=== PATIENT | female | born 1980 | race Caucasian/White ===

== ENCOUNTER → 2020-01-01 11:27 | Outpatient (CLI) | payer OTHER, SELFPAY | PROVIDERS: PCP Internal Medicine Adolescent Medicine; Visit Provider Internal Medicine Adolescent Medicine | DX: Z20.828 Contact with and (suspected) exposure to other viral communicable diseases (principal); U07.1 COVID-19 | CPT/HCPCS: U0003 ==

== ENCOUNTER → 2021-01-17 13:28 | Outpatient (CLI) | payer OTHER, SELFPAY ==
[2021-01-19 08:17] LABS: HIV Screen 4th Generation wRfx Non Reactive (Non Reactive)
[2021-01-19 12:11] LABS: Hep A Ab, IgM Negative (Negative); Hepatitis B Core Antibody IgM Negative (Negative); Hepatitis B Surface Antigen Negative (Negative); Hepatitis C Antibody <0.1 s/co ratio (0.0-0.9)
== END ==
PROVIDERS: Visit Provider Internal Medicine Adolescent Medicine
DX: Z11.4 Encounter for screening for human immunodeficiency virus [HIV] (principal); Z20.5 Contact with and (suspected) exposure to viral hepatitis
CPT/HCPCS: 36415; 80074; 86703; G0432

== ENCOUNTER → 2022-03-28 06:20 | Outpatient (CLI) | payer OTHER, SELFPAY | PROVIDERS: PCP Nurse Practitioner Family; Visit Provider Nurse Practitioner Family | DX: R30.0 Dysuria (principal); B96.29 Other Escherichia coli [E. coli] as the cause of diseases classified elsewhere | CPT/HCPCS: 87086; 87088; 87186 ==

== ENCOUNTER → 2022-05-31 16:52 | Outpatient (CLI) | payer OTHER, SELFPAY ==
--- NOTE | 2022-05-31 16:56 | MM_ITS ---
PROCEDURE INFORMATION: Exam: MG Bilateral Screening 3D Mammography Exam date and time: 05/31/2022 4:45 PM Age: 42 years old Clinical indication: Screening examination TECHNIQUE: Imaging protocol: Bilateral Screening tomosynthesis and 2D mammography including computer-aided detection (CAD) when performed. COMPARISON: 1. MG MAMMO DIAGNOSTIC DIGITAL TOMOSYNTHESIS BILATERAL W CAD 06/21/2020 1:20 PM 2. US BREAST RIGHT LIMITED 06/21/2020 3:35 PM FINDINGS: MAMMOGRAPHY: Breast composition: The breasts are heterogeneously dense, which may obscure small masses. Mass: None. Architectural distortion: None. Calcifications: No suspicious calcifications. Asymmetric density: None. Skin thickening: None. Axillary adenopathy: None. IMPRESSION: No mammographic evidence of malignancy. Annual screening is recommended unless otherwise clinically indicated. ASSESSMENT: BI-RADS Category 1: Negative
== END ==
PROVIDERS: PCP Nurse Practitioner Family; Visit Provider Nurse Practitioner Family
DX: Z12.31 Encounter for screening mammogram for malignant neoplasm of breast (principal)
CPT/HCPCS: 77063; 77067

== ENCOUNTER → 2022-06-17 10:00 | Outpatient (CLI) | payer OTHER, SELFPAY | PROVIDERS: PCP Family Medicine; Visit Provider Family Medicine | DX: R30.0 Dysuria (principal); B96.29 Other Escherichia coli [E. coli] as the cause of diseases classified elsewhere | CPT/HCPCS: 87086; 87088; 87186 ==

== ENCOUNTER → 2022-08-26 06:49 | Outpatient (CLI) | payer OTHER, SELFPAY ==
--- NOTE | 2022-08-26 07:15 | US_ITS ---
PROCEDURE: US TRANSVAGINAL CLINICAL INDICATION: IUD CHECK UP,FAMILY H/O OVARIAN CYST COMPARISON: No exams were available for comparison FINDINGS: UTERUS: 7cm x 5cmx 4cm with a combined endometrial thickness of 7.5mm the myometrium appears somewhat heterogenous in texture. The cervix is normal with a couple of small nabothian cysts. There is an IUD within the uterine cavity in the correct position. LEFT OVARY: 4spw6ven9.9cm with a volume of 6.9ml. RIGHT OVARY: 3cmx 3tfi9tw with a volume of 6.5ml. There are 3 small follicles on each ovary the largest of which is 8 millimeters. IMPRESSION: 1. Normal transvaginal ultrasound of the pelvis. 2. The uterus is anteverted and normal in shape and size. There is an IUD within the endometrial cavity in the correct position. The cervix has a couple of small nabothian cysts. 3. The myometrium appears somewhat heterogenous which is of questionable clinical significance. 4. The ovaries appear normal and have a few small follicles on each ovary. There is good Doppler flow to each ovary. 5. There is no fluid in the cul-de-sac. Dictated by: Samuel Mason MD 08/26/2022 09:27 Samuel Mason MD in [place] 08/26/2022 09:27
== END ==
PROVIDERS: PCP Internal Medicine Adolescent Medicine; Referring Provider Nurse Practitioner Obstetrics & Gynecology; Visit Provider Nurse Practitioner Obstetrics & Gynecology
DX: Z30.431 Encounter for routine checking of intrauterine contraceptive device (principal); Z80.41 Family history of malignant neoplasm of ovary
CPT/HCPCS: 76830

== ENCOUNTER → 2023-02-06 16:49 | Outpatient (CLI) | payer OTHER, SELFPAY ==
[2023-02-06 17:44] LABS: Basophils # 0.1 K/mm3 (0-0.2); Basophils % 0.9 % (0.1-2.0); Eosinophils # 0.1 K/mm3 (0.0-0.4); Eosinophils % 1.6 % (0.1-12.0); Hematocrit 44.1 % (37.0-47.0); Hemoglobin 14.8 g/dL (12.2-16.2); Lymphocytes # 2.5 K/mm3 (0.7-4.5); Lymphocytes % 29.5 % (10-50); Mean Corpuscular HGB Conc 33.5 g/dL (31.8-35.4); Mean Corpuscular Hemoglobin 29.6 pg (27.0-31.2); Mean Corpuscular Volume 88.5 fl (81-99); Mean Platelet Volume 10.2 fl (7.4-10.4); Monocytes # 0.6 K/mm3 (0.1-1.0); Neutrophils # 5.2 K/mm3 (1.8-7.8); Platelet Count 266 K/mm3 (142-424); Red Blood Count 4.98 M/mm3 (4.20-5.40); Red Cell Distribution Width 13.5 % (11.5-17.5); White Blood Count 8.5 K/mm3 (4.8-10.8)
[2023-02-06 19:09] LABS: Chloride 104 mmol/L (98-107); Potassium 4.4 mmoL/L (3.5-5.1); Sodium 140 mmol/L (136-145)
[2023-02-06 19:12] LABS: Anion Gap 12.4 mEq/L (5-15); Blood Urea Nitrogen 13 mg/dl (7-17); Carbon Dioxide 28 mmol/L (22.0-30.0); Estimated Glomerular Filt Rate 111 ml/min (>60); GFR (African American) 134 ML/MIN (>60); Iron 122 ug/dL (37-170)
[2023-02-06 19:13] LABS: Calcium 9.2 mg/dl (8.4-10.2); Glucose 94 mg/dl (74-100)
[2023-02-06 19:18] LABS: 25-OH Vitamin D, Total 34.2 ng/mL (30-100)
[2023-02-06 19:19] LABS: Free T4 (Free Thyroxine) 1.05 ng/dl (0.78-2.19)
[2023-02-06 19:22] LABS: Total Iron Binding Capacity 404 ug/dL (265-497)
[2023-02-06 19:44] LABS: Thyroid Stimulating Hormone 1.13 uIU/mL (0.465-4.68)
[2023-02-06 19:48] LABS: Ferritin 28.2 ng/ml (6.24-137)
[2023-02-06 20:06] LABS: Alanine Aminotransferase 38 U/L (12-78); Aspartate Amino Transferase 34 U/L (14-36)
[2023-02-06 20:07] LABS: Albumin Level 4.6 g/dl (3.5-5.0); Albumin/Globulin Ratio 1.7 (1.1-1.8); Bilirubin,Total 1.4 mg/dl (0.2-1.3); Chol/HDL Ratio 4.4 (1-3.5); Cholesterol 195 mg/dl (140-200); Globulin 2.7 g/dL (1.3-3.2); HDL Cholesterol 44 mg/dl (40-60); Total Protein,Serum 7.3 g/dl (6.3-8.2); Triglycerides 79 mg/dl (30-150); VLDL Cholesterol 16 mg/dL (0-40)
[2023-02-06 20:18] LABS: Direct LDL Cholesterol 127.77 mg/dL (100-129)
[2023-02-06 21:35] LABS: Vitamin B12 738 pg/mL (239-931)
[2023-02-06 21:44] LABS: Alkaline Phosphatase 58 U/L (38-126)
== END ==
PROVIDERS: PCP Nurse Practitioner Family; Visit Provider Nurse Practitioner Family
DX: Z00.00 Encounter for general adult medical examination without abnormal findings (principal); E55.9 Vitamin D deficiency, unspecified; R53.81 Other malaise; Z86.39 Personal history of other endocrine, nutritional and metabolic disease; Z68.26 Body mass index [BMI] 26.0-26.9, adult
CPT/HCPCS: 80053; 80061; 82306; 82607; 82728; 83540; 83550; 84439; 84443; 85025

== ENCOUNTER 2023-09-24 11:10 | Outpatient (CLI) | payer OTHER, SELFPAY | END 2023-09-24 23:59 | disposition home or self-care (01) | LOC: LAB.DROPOF 09-25 11:10 | PROVIDERS: PCP Nurse Practitioner; Visit Provider Nurse Practitioner | DX: R30.0 Dysuria (principal) | CPT/HCPCS: 87086; 87088; 87186 ==

== ENCOUNTER 2023-12-26 18:54 | Emergency (ER) | payer OTHER, SELFPAY ==
[2023-12-26 19:06] VITALS: BP 144/70; PULSE 80; RESP 16; TEMP 36.7; O2SAT 99; BMI 26.5
[2023-12-26] MEDS: METHYLPREDNISOLONE SOD SUCC 125MG VIAL 125 MG IM (19:09)
[2023-12-26] MEDS: FAMOTIDINE 20MG TABLET 20 MG PO (19:10)
[2023-12-26] MEDS: LORATADINE 10MG TABLET 10 MG PO (19:10)
--- NOTE | 2023-12-26 19:10 | EXP.UTC ---
Discharge Plan Disposition Patient Disposition: Home, Self-Care Condition: Good Prescriptions Prescriptions: New prednisolone acetate [Pred Forte] 1 % drops,suspension 1 drp ophthalmic (eye) QID Qty: 10 0RF Rx Instructions: in right eye as directed methylprednisolone [Medrol (Jose Enrique)] 4 mg tablets,dose pack See Rx Instructions .Route .COMPLEX 6 Days Qty: 21 0RF Rx Instructions: taper pack; No Action citalopram 10 mg tablet 20 mg PO DAILY valacyclovir [Valtrex] 1 gram tablet 1,000 mg PO TID 10 Days Qty: 30 1RF Mirena 20 mcg/24 hours (8 yrs) 52 mg intrauterine device intrauterine nitrofurantoin monohyd/m-cryst [Macrobid] 100 mg capsule 100 mg PO Q12H 7 Days Qty: 14 0RF Rx Instructions: must administer with a meal/food Referrals Follow up/Referrals: Ki Kapadia MD [Primary Care Provider] - See instructions Activity Restrictions/Add. Instructions Additional Instructions/Restrictions: Use eyedrops as prescribed Follow up with your Eye Doctor if no improvement or any worsening of symptoms Start oral steriods tomorrow Follow up with your Family Doctor if needed Straight to ER if any life threatening symptoms Clinical Impressions Clinical Impression: Allergic reaction Qualifiers: Encounter type: initial encounter Qualified Code(s): T78.40XA - Allergy, unspecified, initial encounter Instructions Patient Instructions: DI for General Allergic Reactions, Prednisolone Ophthalmic Print Language Print Language: Korean Discharge ED Provider: Yojana Chacon [facility] [place] Stated complaint: poss allergic reaction Mode of Arrival: Ambulatory Source of Information: Patient Limitations: No Limitations Time Seen by Provider: 12/26/23 19:11 Description of Symptoms (Recalled from Triage Doc. by RN): Possible allergic reaction to her right eye. HEENT Symptoms (Recalled from RN notes): Yes Resp Symptoms (Recalled from RN notes): No Skin Symptoms (Recalled from RN notes): Yes MS Symptoms (Recalled from RN notes): No Functional Status (Recalled from RN notes): wnl History of Present Illness Provider Complaint: Patient states that she is allergic to cats and she had one jump up in her lap and she accidently touched her face and rubbed her right eye States that she noticed her face was starting to get red and break out and look like she has a blister on her eye and it is very itchy States that she noticed the redness and swelling was getting worse so she came in to get checked Related Data Home Medications ?Medication ?Instructions ?Recorded ?Confirmed levonorgestrel 21 mcg/24 hr (up to intrauterine 03/28/22 04/11/23 8 years) 52 mg intrauterine device (Mirena) citalopram 10 mg tablet 20 mg PO DAILY anxiety 04/11/23 04/11/23 Previous Rx's ?Medication ?Instructions ?Recorded valacyclovir 1 gram tablet 1,000 mg PO TID 10 days #30 tabs 04/11/23 (Valtrex) nitrofurantoin 100 mg PO Q12H 7 days #14 caps 09/24/23 monohydrate/macrocrystals 100 mg capsule (Macrobid) methylprednisolone 4 mg tablets in See Rx Instructions .Route 12/26/23 a dose pack (Medrol (Jose Enrique)) .COMPLEX 6 days #21 tabs prednisolone acetate 1 % eye 1 drp ophthalmic (eye) QID #10 mL 12/26/23 drops,suspension (Pred Forte) Allergies Allergy/AdvReac Type Severity Reaction Status Date / Time minocycline Allergy Verified 04/11/23 09:07 Sulfa (Sulfonamide Allergy Verified 04/11/23 09:07 Antibiotics) Worker's Comp Is this a Worker's Comp case?: No [facility] Disclaimer: The information contained in this section may have been updated after the patient was seen, as this information can be updated by other users. Medical History No active medical problems Surgical History History of 3 sections History of appendectomy History of bunionectomy Family History Mother Stroke Hypertension Father Diabetes Cancer bladder Brother Diabetes Hypertension Hyperlipidemia Kidney disease Social History Smoking Status: Never smoker second hand exposure: No alcohol intake: never substance use type: denies use current occupational status: employed Travel in the last 8 weeks: None household members: family housing: house marital status: ROS Obtained: Yes All systems reviewed & no additional complaints except as documented and Yes Systems reviewed as appropriate & no additional complaints except as documented Constitutional Constitutional: Reports system reviewed and no additional complaints, except as documented and Reports as per HPI Eyes Eyes: Reports system reviewed and no additional complaints, except as documented, Reports as per HPI and Reports itchy eyes (with fluid filled area noted on eye) ENT Ears, Nose, Mouth, and Throat: Reports system reviewed and no additional complaints, except as documented and Reports as per HPI Cardiovascular Cardiovascular: Reports system reviewed and no additional complaints, except as documented and Reports as per HPI Respiratory Respiratory: Reports system reviewed and no additional complaints, except as documented and Reports as per HPI Gastrointestinal Gastrointestingal: Reports system reviewed and no additional complaints, except as documented and as per HPI Integumentary/Breasts Skin/Breast: Reports system reviewed and no additional complaints, except as documented, Reports as per HPI and Reports pruritus Allergic/Immunologic Allergic/Immunologic: Reports itchy eyes (with fluid filled area noted on eye) Physical Exam General General appearance: alert and in no apparent distress Eye Eye exam: Present conjunctival redness, discharge (clear) and other (chemosis noted, clear fluid) ENT ENT exam: Present mucous membranes moist Respiratory Respiratory exam: Present normal lung sounds bilaterally; Absent respiratory distress or wheezes Cardiovascular Cardiovascular exam: Present regular rate, normal rhythm and normal heart sounds Neurological Exam Neurological exam: Present alert, oriented X3 and normal gait Skin Skin exam: Present rash (with redness and urticaria like reaction with mild swelling under eye) Medical Decision Making Medical Records Screening: Per USPSTF and CDC recommendations, given the prevalence of disease in our region, it is our hospital?s policy to screen for HIV and viral Hepatitis for all patients aged 18 and over and those with ongoing risk factors. Good Inquiry Pt receiving controlled substance: No Good was queried for this patient: No Vital Signs: 12/26/23 19:06 Temperature 98.0 F Temperature Source Oral Pulse Rate [Radial] 80 Respiratory Rate 16 Blood Pressure [Right Arm] 144/70 H Blood Pressure Mean [Right Arm] 94 Blood Pressure Source [Right Arm] Automatic Cuff Blood Pressure Position [Right Arm] Sitting 02 Sat by Pulse Oximetry 99 Oxygen Delivery Method Room Air Orders (Tests/Meds): ED MEDICATIONS Generic Name Dose Route Start Last Admin Trade Name Freq PRN Reason Stop Dose Admin Famotidine 20 mg 12/26/23 19:08 12/26/23 19:10 Famotidine 20mg Tablet PO 12/26/23 19:09 20 mg ONCE ONE Administration Loratadine 10 mg 12/26/23 19:09 12/26/23 19:10 Loratadine 10mg Tablet PO 12/26/23 19:10 10 mg ONCE ONE Administration Methylprednisolone Sodium Succinate 125 mg 12/26/23 19:08 12/26/23 19:09 Methylprednisolone Sod Succ 125mg Vial IM 12/26/23 19:09 125 mg ONCE ONE Administration Medical Decision Narrative: Spoke with Dr Jorgensen from [facility] patients eye doctor and he recommended Pred Forte 1 drop four times daily, cool compresses and follow up in the office if no improvement
[2023-12-26 19:35] VITALS: BP 144/70; PULSE 80; RESP 16; TEMP 36.7; O2SAT 99
== END 2023-12-26 19:36 | disposition home or self-care (01) ==
PROVIDERS: Emergency Provider Nurse Practitioner; PCP Internal Medicine Adolescent Medicine
DX: T78.40XA Allergy, unspecified, initial encounter (principal)
CPT/HCPCS: 99213; G0381; J2919

== ENCOUNTER 2024-05-03 08:42 | Outpatient (CLI) | payer OTHER, SELFPAY | END 2024-05-03 23:59 | disposition home or self-care (01) | LOC: LAB.DROPOF 05-04 08:43 | PROVIDERS: PCP Internal Medicine Adolescent Medicine; Visit Provider Nurse Practitioner | DX: N39.0 Urinary tract infection, site not specified (principal) | CPT/HCPCS: 87086; 87088; 87186 ==

== ENCOUNTER 2024-10-26 14:45 | Outpatient (CLI) | payer OTHER, SELFPAY ==
[2024-10-26 14:43] LABS: Hematocrit 43.2 % (37.0-47.0); Hemoglobin 14.0 g/dL (12.2-16.2); Immature Granulocytes % 0.2 %; Mean Corpuscular HGB Conc 32.4 g/dL (31.8-35.4); Mean Corpuscular Hemoglobin 27.6 pg (27.0-31.2); Mean Corpuscular Volume 85.2 fl (81-99); Nucleated Red Blood Cells % 0 %; Platelet Count 285 K/mm3 (142-424); Red Blood Count 5.07 M/mm3 (4.20-5.40); Red Cell Distribution Width-SD 41.1 fL; White Blood Count 6.5 K/mm3 (4.8-10.8)
--- OUTSIDE RECORDS SUMMARY | 2024-10-26 14:50 | XMS_ITS | Clinical Summary ---
Author Organization [facility] Address [address] [place] [address] Care Team Providers Care Compressor Operator Adjuster Name Role Phone Ki Kapadia MD Primary Care Provider [phone] Allergies Active Allergy Reactions Criticality Noted Date Comments Elemental Sulfur Itching Low 12/29/2017 Minocycline Shortness Of Breath High 12/29/2017 Medications No known medications Active Problems Problem Noted Date Diagnosed Date IUD (intrauterine device) in place 08/01/2022 Overview (08/01/2022): mirena placed 06/13/2020 Family history of ovarian cancer 08/01/2022 Overview (08/01/2022): Maternal GM Menorrhagia with regular cycle 05/31/2020 Overview (05/31/2020): Ongoing for 12 years. Anemia was noted on routine labs. U/S 05/31/2002-[id number], midcycle, no polyps or fibroids noted. Plan for mirena Acquired metatarsus varus of left foot 8 Family History Medical History Relation Name Comments Hypertension Brother Cancer Father Diabetes Father Hypertension Father Colon cancer Maternal Grandfather Ovarian cancer Maternal Grandmother 40's Arthritis Mother Breast cancer Neg Hx Relation Name Status Comments Brother Father Maternal Grandfather Maternal Grandmother Mother Social History Tobacco Use Types Packs/Day Years Used Date Smoking Tobacco: Never Smokeless Tobacco: Never Tobacco Cessation:Counseling Given: Not Answered Alcohol Use Standard Drinks/Week Comments No 0 (1 standard drink = 0.6 oz pur e alcohol) AUDIT-C Answer Date Recorded Q1: How often do you have a drink containing alc ohol? Never 2020 Q2: How many drinks containi ng alcohol do you have on a typical day when you are drinking? 1 or 2 2020 Q3: How often do you have six or more drinks on one occasion? Never 2020 Abuse Screen Answer Date Recorded Unsafe at Home or Work/School Not on file Feels Threatened by Someone? Not on file 11/2022 Does Anyone Keep You from Co ntacting Others or Doint Things Outside the Home? Not on file 12/30/2022 Physical Sign of Abuse Present Not on file 1 Housing Stability Answer Date Recorded Current Living Arrangements Not on file 11/2022 Potentially Unsafe Housing Conditions Not on vini e 12/30/2022 Family and Community Support Answer Pedro e Recorded Help with Day-to-Day Activities Not on file 12/30/2022 Lonely or Isolated Not on file 12/30/2022 Employment Answer Date Recorded Do you want help finding or keeping work or a demi b? Not on file 12/30/2022 Disabilities Answer Date Recorded Concentrating, Remembering, or Making Decisions Difficulty Not on file 12/30/2022 Doing Errands Independently Difficulty Not on fi le 12/30/2022 Education Answer Date Recorded Help with school or training? Not on file Preferred Language Not on file 12/30/2022 Comments No Sex and Gender Information Value Date Recorded Sex Assigned at Not on file Legal Sex Female 11:40 AM EDT Gender Identity Not on file Sexual Orientation Not on file Last Filed Vital Signs Vital Sign Reading Time Taken Comments Blood Pressure 110/78 08/01/2022 4:01 PM EDT Pulse 70 07/15/2018 2:44 PM EDT Temperature 36.5 C (97.7 F) 2020 1:24 PM EST Respiratory Rate - - Oxygen Saturation 97% 07/15/2018 2:44 PM EDT Inhaled Oxygen Concentration - - Weight 66.8 kg (147 lb 3.2 oz) 08/01/2022 4:01 P M EDT Height 162.6 cm (5' 4 ) 08/01/2022 4:01 PM EDT Body Mass Index 25.27 08/01/2022 4:01 PM EDT Plan of Treatment Health Maintenance Due Date Last Done Comments ANNUAL PHYSICAL 12/29/2017 HEPATITIS C SCREENING 12/29/2017 MAMMOGRAM 06/21/2022 06/21/2020 Annual Gynecologic Pelvic and Breast Exam 08/03/2023 08/01/2022 COVID-19 Vaccine ( season) 2023 05/05/2020, 04/04/2020 INFLUENZA VACCINE 12/22/2024 02/09/2021, , 01/20/2019, Additional history exists TDAP/TD VACCINES (2 - Td or Tdap) 09/29/2029 09/30/2019 Pneumococcal Vaccine 0-49 Aged Out No longer eligible based on patient's age to complete this topic Procedures Procedure Name Priority Date/Time Associated Diagnosis Comments MAMMO DIAGNOSTIC DIGITAL TOMOSYNTHESIS BILATERAL W CAD Routine 06/21/2020 2:21 PM EDT Breast lump on right side at 6 o'clock position from Last 3 Months or Most Recently Relevant to Health Maintenance Results * Mammo Diagnostic Digital Tomosynthesis Bilateral With CAD (06/21/2020 2:21 PM EDT) Anatomical Region Laterality Modality Breast Bilateral Mammography 06/21/2020 3:39 PM EDT Impressions 06/22/2020 9:05 AM EDT No mammographic abnormality seen on either side. As stated above, asymmetries in the right superior breast improved with focal compression imaging with no corresponding sonographic abnormality. No focal mammographic or sonographic abnormality is seen in the 6:00 periareolar region of the right breast. RECOMMENDATION: Recommend clinical follow-up of the right breast. Otherwise, recommend the patient begin annual screening mammography at age 42 unless clinically indicated sooner. ACR BI-RADS CATEGORY 1, NEGATIVE CAD was utilized. The standard false-negative rate of mammography is between 10% and 25%. Complex patterns or increased breast density will markedly elevate the false-negative rate of mammography. A letter, in lay terminology, with the results of this exam was given to the patient at the time of the visit. At our facility, a triangular marker is positioned over a palpable area of concern indicated by the patient. A kan[place] marker is placed over a visible skin lesion. A linear marker indicates a scar. DICTATED: 06/21/2020 EDITED/ls : 06/21/2020 This report was finalized on 06/22/2020 9:[address] Cora Saucedo MD. Narrative 06/22/2020 9:05 AM EDT BILATERAL DIAGNOSTIC MAMMOGRAM WITH TOMOSYNTHESIS AND A FOCUSED RIGHT BREAST ULTRASOUND CLINICAL INDICATION: 40-year-old patient presents for evaluation of a palpable area of concern her physician noted in the 6:00 distribution of her right breast periareolar skin. The patient herself does not perceive any changes in this region. She reports no family history of breast cancer. TECHNIQUE: Low-dose full field digital breast tomosynthesis imaging was performed consisting of bilateral CC and MLO views. In addition, a 2D-3D combination right MLO focal compression view was performed as well as a right ML view. Also, focused ultrasound imaging of the right breast was performed. COMPARISON: This is the patient's baseline exam. FINDINGS: There are scattered areas of fibroglandular density. LEFT BREAST: There is no evidence of mass, architectural distortion or suspicious calcifications. RIGHT BREAST: Asymmetries in the right superior breast improved with focal compression and ML imaging. No focal masses, architectural distortion or suspicious calcifications are seen. In particular, no mammographic abnormality seen in the 6:00 periareolar region of the right breast. Ultrasound imaging of the right superior breast was performed to evaluate the mammographic asymmetries as well is the 6:00 distribution. No solid or cystic masses are seen. No abnormal areas of shadowing are noted. There is some prominent fibrous tissue in the 6:00 periareolar region which is felt to likely correlate to the palpable area of concern noted by the patient's physician. Oralia Aguirre WOOD MODEL BUILDER IMG MAMMOGRAPHY ORDERABLE S Final Result from Last 3 Months or Most Recently Relevant to Health Maintenance Insurance [employer] [place] [id number] Care Teams Compressor Operator Adjuster Relationship Specialty Start Date End Date Ki Kapadia MD [address] [facility] [address] [place] [id number] PCP - General Adolescent Medicine 12/29/17
--- OUTSIDE RECORDS SUMMARY | 2024-10-26 14:50 | XMS_ITS | Clinical Summary ---
Author Organization [facility] Address [address] [place] [address] Care Team Providers Care Bi Specialist Name Role Phone Carlos Galindo MD Primary Care Provider + [phone] Social History Tobacco Use Types Packs/Day Years Used Date Smoking Tobacco: Never Assessed Comments Unknown Sex and Gender Information Value Date Recorded Sex Assigned at Not on file Legal Sex Female 8:53 PM EDT Gender Identity Not on file Sexual Orientation Not on file Last Filed Vital Signs Vital Sign Reading Time Taken Comments Blood Pressure - - Pulse - - Temperature - - Respiratory Rate - - Oxygen Saturation - - Inhaled Oxygen Concentration - - Weight 62.6 kg (138 lb 0.1 oz) 06/24/2016 8:34 A M EDT Height 160 cm (5' 3 ) 06/24/2016 8:34 AM EDT Body Mass Index 24.45 06/24/2016 8:34 AM EDT Plan of Treatment Not on file Care Teams Bi Specialist Relationship Specialty Start Date End Date Carlos Galindo MD [address] [place] [address] PCP - General 08/04/20
[2024-10-26 16:07] LABS: Albumin Level 3.8 g/dl (3.5-5.0); Chloride 101 mmol/L (98-107); Potassium 3.9 mmoL/L (3.5-5.1); Sodium 136 mmol/L (136-145)
[2024-10-26 16:10] LABS: Alanine Aminotransferase 48 U/L (12-78); Albumin/Globulin Ratio 1.1 (1.1-1.8); Alkaline Phosphatase 52 U/L (38-126); Anion Gap 10.9 mEq/L (5-15); Aspartate Amino Transferase 43 U/L (14-36); Bilirubin,Total 0.9 mg/dl (0.2-1.3); Blood Urea Nitrogen 13 mg/dl (7-17); Carbon Dioxide 28 mmol/L (22.0-30.0); Creatinine,Serum 0.60 mg/dl (0.52-1.04); Estimated Glomerular Filt Rate 110 ml/min (>60); GFR (African American) 133 ML/MIN (>60); Globulin 3.4 g/dL (1.3-3.2); Iron 103 ug/dL (37-170); Total Protein,Serum 7.2 g/dl (6.3-8.2)
[2024-10-26 16:11] LABS: Calcium 9.5 mg/dl (8.4-10.2); Glucose 120 mg/dl (74-100)
[2024-10-26 16:23] LABS: Total Iron Binding Capacity 369 ug/dL (265-497)
[2024-10-26 17:00] LABS: Hepatitis C Ab Qual. W/ RFX NEGATIVE (Negative); Vitamin B12 651 pg/mL (239-931)
[2024-10-26 17:19] LABS: Thyroid Stimulating Hormone 0.74 uIU/mL (0.465-4.68)
[2024-10-26 19:46] LABS: Hemoglobin A1C 5.0 % (4.0-6.0)
[2024-10-27 08:13] LABS: Hepatitis B Surface Antigen Negative (Negative)
== END 2024-10-26 23:59 | disposition home or self-care (01) ==
LOC: LAB.DROPOF 14:46
PROVIDERS: PCP Internal Medicine Adolescent Medicine; Visit Provider Nurse Practitioner
DX: G44.52 New daily persistent headache (NDPH) (principal); E66.3 Overweight; H53.9 Unspecified visual disturbance; R03.0 Elevated blood-pressure reading, without diagnosis of hypertension; Z86.2 Personal history of diseases of the blood and blood-forming organs and certain disorders involving the immune mechanism; E01.0 Iodine-deficiency related diffuse (endemic) goiter; Z11.59 Encounter for screening for other viral diseases
CPT/HCPCS: 80053; 82607; 83036; 83540; 83550; 84443; 85025; 86803; 87340; 87389

== ENCOUNTER 2024-11-03 07:44 | Outpatient (CLI) | payer OTHER, SELFPAY ==
--- OUTSIDE RECORDS SUMMARY | 2024-11-03 07:46 | XMS_ITS | Clinical Summary ---
Author Organization [facility] Address [address] [place] [address] Care Team Providers Care Chief Cardiopulmonary Technologist Name Role Phone Ki Kapadia MD Primary Care Provider [phone] Allergies Active Allergy Reactions Criticality Noted Date [...] Anemia was noted on routine labs. U/S 05/31/2037-[id number], midcycle, no polyps or fibroids noted. Plan [...] of concern indicated by the patient. A egeg[place] marker is placed over a visible skin [...] noted by the patient's physician. Oralia Aguirre COMBINATION SAW OPERATOR IMG MAMMOGRAPHY ORDERABLE S Final Result from Last 3 Months or Most Recently Relevant to Health Maintenance Insurance [employer] [place] [id number] Care Teams Chief Cardiopulmonary Technologist Relationship Specialty Start Date End Date Ki Kapadia MD [address] [facility] [address] [place] [phone] PCP - General Adolescent Medicine 12/29/17
--- OUTSIDE RECORDS SUMMARY | 2024-11-03 07:46 | XMS_ITS | Clinical Summary ---
Author Organization [facility] Address [address] [place] [address] Care Team Providers Care Artist Mannequin Coloring Name Role Phone Carlos Galindo MD Primary Care Provider + [phone] Social History Tobacco Use Types Packs/Day Years [...] of Treatment Not on file Care Teams Artist Mannequin Coloring Relationship Specialty Start Date End Date Carlos Galindo MD [address] [place] [address] PCP - General 08/04/20
--- NOTE | 2024-11-03 07:48 | US_ITS ---
PROCEDURE: US TRANSVAGINAL CLINICAL INDICATION: FAMILY HX OVARIAN CANCER, iud CHECK-UP COMPARISON: US US TRANSVAGINAL from 08/26/2022 FINDINGS: Transvaginal sonographic images of the pelvis were obtained. UTERUS: 7.8cm x 4.5cmx 3.6 cm anteverted with a combined endometrial thickness of 6.8mm. There is an IUD within the uterine cavity in the correct position. A scar is seen. LEFT OVARY: 3.2cmx3.1cmx2.6cm with a volume of 13.9ml. There is a dominant follicle in the left ovary measuring 3.0 cm x 1.6 cm x 2.6 cm. RIGHT OVARY: 2.6 cmx 2.1cmx2.3cm with a volume of 6.5ml. There are several small peripheral follicles. There are 2 larger follicles in the right ovary measuring 1.1 cm and 1.6 cm. Both ovaries are seen and appear normal. Doppler flow to both ovaries are seen. There is no fluid in the cul-de-sac. IMPRESSION: 1. Anteverted uterus normal in shape and size. The endometrium measures 6.8 mm. 2. There is an IUD within the uterine cavity in the correct position. 3. Both ovaries are seen and appear normal. The right ovary has at least 2 follicles the largest of which is 1.6 cm. The left ovary has a dominant follicle measuring 3.0 cm. 4. No fluid in the cul-de-sac. Dictated by: Samuel Mason MD 11/03/2024 10:57 Samuel Mason MD in [place] 11/03/2024 10:57
--- NOTE | 2024-11-03 08:00 | US_ITS ---
FINAL REPORT TECHNIQUE: Real-time grayscale and color ultrasound of the thyroid was performed. CLINICAL HISTORY: thyromegaly COMPARISON: None FINDINGS: The thyroid gland volume measures 3.8 mL on the right and 3.7 mL on the left. The isthmus measures 2 mm. Mild generalized atrophy of the thyroid gland. Nodules: 3 mm TR 4 nodule in the medial right lobe. Small colloid cysts bilaterally. IMPRESSION: Small benign-appearing nodules as above. Based on size, no further follow-up indicated per TI-RADS criteria. Reviewed, Interpreted and Dictated by Brody Reid MD Transcribed by Frances Morales Authenticated and [facility]
== END 2024-11-03 23:59 | disposition home or self-care (01) ==
LOC: RAD 07:45
PROVIDERS: PCP Internal Medicine Adolescent Medicine; Visit Provider Nurse Practitioner
DX: N83.02 Follicular cyst of left ovary (principal); N83.01 Follicular cyst of right ovary; E01.0 Iodine-deficiency related diffuse (endemic) goiter; Z30.431 Encounter for routine checking of intrauterine contraceptive device; Z80.41 Family history of malignant neoplasm of ovary
CPT/HCPCS: 76536; 76830

== ENCOUNTER 2024-11-10 07:53 | Outpatient (CLI) | payer OTHER, SELFPAY ==
--- OUTSIDE RECORDS SUMMARY | 2024-11-10 07:54 | XMS_ITS | Clinical Summary ---
Author Organization [facility] Address [address] [place] [address] Care Team Providers Care Supervisor Word Processing Name Role Phone Ki Kapadia MD Primary Care Provider [phone] Allergies Active Allergy Reactions Criticality Noted Date [...] Anemia was noted on routine labs. U/S 05/31/2074-[id number], midcycle, no polyps or fibroids noted. Plan [...] of concern indicated by the patient. A [place] marker is placed over a visible skin [...] noted by the patient's physician. Oralia Aguirre FOREIGN LAW CONSULTANT IMG MAMMOGRAPHY ORDERABLE S Final Result from Last 3 Months or Most Recently Relevant to Health Maintenance Insurance [employer] [place] [id number] Care Teams Supervisor Word Processing Relationship Specialty Start Date End Date Ki Kapadia MD [address] [facility] [address] [place] [phone] PCP - General Adolescent Medicine 12/29/17
--- OUTSIDE RECORDS SUMMARY | 2024-11-10 07:54 | XMS_ITS | Clinical Summary ---
Author Organization Healthcare Address [address] [place] [address] Care Team Providers Care Guardian Family Member Name Role Phone Carlos Galindo MD Primary Care Provider + [phone] Social History Tobacco Use Types Packs/Day Years [...] of Treatment Not on file Care Teams Guardian Family Member Relationship Specialty Start Date End Date Carlos Galindo MD [address] [place] [address] PCP - General 08/04/20
--- NOTE | 2024-11-10 07:55 | MM_ITS ---
PROCEDURE INFORMATION: Exam: MG Bilateral Screening 3D Mammography Exam date and time: 11/10/2024 8:06 AM Age: 44 years old Clinical indication: Screening examination TECHNIQUE: Imaging protocol: Bilateral Screening tomosynthesis and 2D mammography including computer-aided detection (CAD) when performed. COMPARISON: 1. MG MM DIG SCREENING MAMM BI W/CAD 05/31/2022 4:45 PM 2. MG MAMMO DIAGNOSTIC DIGITAL TOMOSYNTHESIS BILATERAL W CAD 06/21/2020 1:20 PM FINDINGS: MAMMOGRAPHY: Breast composition: There are scattered areas of fibroglandular density. Mass: No suspicious masses. Architectural distortion: None. Calcifications: No suspicious calcifications. Asymmetric density: None. Skin thickening: None. Axillary adenopathy: None. IMPRESSION: No mammographic evidence of malignancy. Annual screening is recommended unless otherwise clinically indicated. ASSESSMENT: BI-RADS Category 1: Negative.
== END 2024-11-10 23:59 | disposition home or self-care (01) ==
LOC: RAD 07:53
PROVIDERS: PCP Internal Medicine Adolescent Medicine; Visit Provider Nurse Practitioner Family
DX: Z12.31 Encounter for screening mammogram for malignant neoplasm of breast (principal); R92.323 Mammographic fibroglandular density, bilateral breasts
CPT/HCPCS: 77063; 77067

== ENCOUNTER 2024-11-15 07:30 | Outpatient (CLI) | payer OTHER, SELFPAY ==
--- OUTSIDE RECORDS SUMMARY | 2024-11-15 07:32 | XMS_ITS | Clinical Summary ---
Author Organization [facility] Address [address] [place] [address] Care Team Providers Care Vice Chancellor Name Role Phone Ki Kapadia MD Primary Care Provider [phone] Allergies Active Allergy Reactions Criticality Noted Date [...] Anemia was noted on routine labs. U/S 05/31/2021-[id number], midcycle, no polyps or fibroids noted. Plan [...] of concern indicated by the patient. A houlton marker is placed over a visible skin [...] noted by the patient's physician. Oralia Aguirre LIGHT FIXTURE SERVICER IMG MAMMOGRAPHY ORDERABLE S Final Result from Last 3 Months or Most Recently Relevant to Health Maintenance Insurance [employer] [place] [id number] Care Teams Vice Chancellor Relationship Specialty Start Date End Date Ki Kapadia MD [address] [facility] [address] [place] [id number] PCP - General Adolescent Medicine 12/29/17
--- OUTSIDE RECORDS SUMMARY | 2024-11-15 07:32 | XMS_ITS | Clinical Summary ---
Author Organization Healthcare Address [address] [place] [address] Care Team Providers Care Cupola Operator Insulation Name Role Phone Carlos Galindo MD Primary Care Provider + [phone] Social History Tobacco Use Types Packs/Day Years [...] of Treatment Not on file Care Teams Cupola Operator Insulation Relationship Specialty Start Date End Date Carlos Galindo MD [address] [place] [id number] PCP - General 08/04/20
--- NOTE | 2024-11-15 07:45 | MR_ITS ---
PROCEDURE INFORMATION: Exam: MR Head Without and With Contrast Exam date and time: 11/15/2024 7:30 AM Age: 44 years old Clinical indication: Pain; Headache; Additional info: New daily persistent headache TECHNIQUE: Imaging protocol: Magnetic resonance imaging of the head without and with contrast. Contrast material: PROHANCE; Contrast volume: 15 ml; Contrast route: IV; COMPARISON: US THYROID 11/03/2024 8:13 AM FINDINGS: Brain: There is no evidence of acute parenchymal hemorrhage, extra-axial collection, or acute infarction. There is no mass effect, midline shift, or downward herniation. The white matter appears normal. There is no pathologic enhancement. Cerebral ventricles: Normal. No ventriculomegaly. Bones: Unremarkable. Paranasal sinuses: Normal as visualized. No acute sinusitis. Mastoid air cells: Normal as visualized. No mastoid effusion. Orbital cavities: Unremarkable. Soft tissues: Unremarkable. IMPRESSION: Unremarkable appearance of the brain.
[2024-11-15] MEDS: SODIUM CHLORIDE 0.9% 10ML SYR (RAD ONLY) 10 ML IV (08:02)
[2024-11-15] MEDS: GADOTERIDOL INJ 20ML SYRINGE 15 ML IV (08:02)
== END 2024-11-15 23:59 ==
LOC: RAD 07:30
PROVIDERS: PCP Internal Medicine Adolescent Medicine; Visit Provider Nurse Practitioner
DX: G44.52 New daily persistent headache (NDPH) (principal)
CPT/HCPCS: 70553; A9576